=== PATIENT | male | born 1940 ===

== ENCOUNTER → 2020-07-03 09:48 | Outpatient (CLI) | payer OTHER | END | disposition home or self-care (01) | LOC: LAB 09:48 | PROVIDERS: ATTEND Urology | DX: R97.20 Elevated prostate specific antigen [PSA] (principal) ==

== ENCOUNTER 2020-07-13 07:18 | Outpatient (CLI) | payer OTHER | END 2020-07-13 15:08 | disposition home or self-care (01) | LOC: RAD 07:18 | PROVIDERS: ATTEND Urology | DX: C61 Malignant neoplasm of prostate (principal); D29.1 Benign neoplasm of prostate; R97.20 Elevated prostate specific antigen [PSA] ==

== ENCOUNTER 2020-07-19 15:34 | Outpatient (CLI) | payer OTHER | END 2020-07-19 15:40 | disposition home or self-care (01) | LOC: LAB 15:34 | PROVIDERS: ATTEND Urology | DX: N30.00 Acute cystitis without hematuria (principal) ==

== ENCOUNTER → 2020-07-19 | Emergency (ER) | payer OTHER ==
[~2020-07-19] VITALS: Ht 180.3 cm; Wt 80.7 kg
[~2020-07-19] MED LIST: CARDURA XL4 MG; TOPROL XL25 M1
== END | disposition home or self-care (01) ==
LOC: ER 04:13
DX: G89.18 Other acute postprocedural pain (principal); N50.811 Right testicular pain; N45.1 Epididymitis; N43.2 Other hydrocele; Z03.818 Encounter for observation for suspected exposure to other biological agents ruled out

== ENCOUNTER 2022-08-07 08:36 | Outpatient (CLI) | payer OTHER | END 2022-08-07 08:39 | disposition home or self-care (01) | LOC: SONOGRAMA 08:36 | PROVIDERS: ATTEND Pathology Anatomic Pathology & Clinical Pathology | DX: D11.0 Benign neoplasm of parotid gland (principal) ==

== ENCOUNTER → 2022-10-10 | Outpatient (CLI) | payer OTHER | END | disposition home or self-care (01) | LOC: MRI 06:43 | PROVIDERS: ATTEND Orthopaedic Surgery | DX: S83.200A Bucket-handle tear of unspecified meniscus, current injury, right knee, initial encounter (principal); S83.201A Bucket-handle tear of unspecified meniscus, current injury, left knee, initial encounter ==